=== PATIENT | male | born 1980 | race Caucasian/White ===

== ENCOUNTER 2016-06-08 14:48 | Emergency (ER) | payer OTHER, MEDICAID ==
[~2016-06-08] VITALS: Ht 170.2 cm; Wt 81.6 kg
[2016-06-08 14:50] VITALS: BP_SYST 129
[2016-06-08] MEDS ORDERED: KETOROLAC TROMETHAMINE 60 MG/2 ML VIAL IM ONE (15:30)
[2016-06-08] MEDS ORDERED: DEXAMETHASONE SOD PHOSPHATE 10 MG/ML VIAL IM ONE (15:30)
[2016-06-08 16:39] VITALS: BP_SYST 129
== END 2016-06-08 16:39 | disposition home or self-care (01) ==
LOC: SED 14:48
DX: L03.012 Cellulitis of left finger (principal); S60.461A Insect bite (nonvenomous) of left index finger, initial encounter; C62.90 Malignant neoplasm of unspecified testis, unspecified whether descended or undescended; W57.XXXA Bitten or stung by nonvenomous insect and other nonvenomous arthropods, initial encounter; Y93.89 Activity, other specified; Y99.8 Other external cause status; Y92.89 Other specified places as the place of occurrence of the external cause
CPT/HCPCS: 96372; 99284; J1100; J1885

== ENCOUNTER 2017-09-25 13:49 | Emergency (ER) | payer OTHER, MEDICAID ==
[~2017-09-25] VITALS: Ht 175.3 cm; Wt 86.2 kg
[2017-09-25 13:58] VITALS: BP_SYST 115
[2017-09-25] MEDS ORDERED: IBUPROFEN 800 MG TABLET PO ONE (14:15)
[2017-09-25] MEDS ORDERED: AMOXICILLIN/CLAVULANATE POTASSIUM 875 MG TABLET PO ONE (15:00)
[2017-09-25 15:28] VITALS: BP_SYST 117
== END 2017-09-25 15:28 | disposition home or self-care (01) ==
LOC: SED 13:49
DX: J01.90 Acute sinusitis, unspecified (principal); Z90.89 Acquired absence of other organs; Z90.49 Acquired absence of other specified parts of digestive tract; Z85.47 Personal history of malignant neoplasm of testis
CPT/HCPCS: 71045; 99283

== ENCOUNTER 2017-09-26 21:58 | Emergency (ER) | payer OTHER, MEDICAID ==
[~2017-09-26] VITALS: Ht 175.3 cm; Wt 86.2 kg
[2017-09-26 22:01] VITALS: BP_SYST 94
[2017-09-26] MEDS ORDERED: NACL 0.9% 1,000 ML IV ONE (22:34)
[2017-09-26] MEDS ORDERED: LevALBUTEROL HCL 1.25 MG/0.5 ML *CONC.* VIAL.NEB (XOPENEX CONC.) INH ONE (22:45)
[2017-09-26 23:17] LABS: BASOPHILS # (AUTO) 0.1 K/uL (0.0-0.2); BASOPHILS % (AUTO) 0.9 % (0.0-2.0); EOSINOPHILS # (AUTO) 0.2 K/uL (0.0-0.4); EOSINOPHILS % (AUTO) 2.1 % (0.0-4.0); HEMATOCRIT 44.1 % (36-54); HEMOGLOBIN 14.9 g/dL (14.0-18.0); LYMPHOCYTES # (AUTO) 2.2 K/uL (1.0-5.5); LYMPHOCYTES % (AUTO) 29.6 % (20.5-51.5); MEAN CORPUSCULAR HEMOGLOBIN 28 pg (27-31); MEAN CORPUSCULAR HGB CONC 34 % (32-36); MEAN CORPUSCULAR VOLUME 84 fL (79.0-98.0); MONOCYTES # (AUTO) 0.6 K/uL (0.0-1.0); NEUTROPHILS # (AUTO) 4.5 K/uL (1.8-7.7); NEUTROPHILS % (AUTO) 59.4 % (40.0-70.0); PLATELET COUNT (AUTO) 211 K/uL (130-430); RED BLOOD CELL COUNT(AUTO) 5.26 MIL/uL (4.2-6.2); RED CELL DISTRIBUTION WIDTH 13.6 % (9.0-15.0); WHITE BLOOD COUNT (AUTO) 7.6 K/uL (4.8-10.8)
[2017-09-26 23:33] LABS: CALCIUM 8.2 mg/dL (8.4-11.0); CREATININE 0.38 mg/dL (0.55-1.30); POTASSIUM 3.7 mmol/L (3.5-5.1)
[2017-09-26 23:39] LABS: ALBUMIN 3.3 g/dL (3.4-4.8); TOTAL BILIRUBIN 0.3 mg/dL (0.0-1.0)
[2017-09-27 00:45] VITALS: BP_SYST 104
== END 2017-09-27 00:45 | disposition home or self-care (01) ==
LOC: SED 21:58
DX: R50.9 Fever, unspecified (principal); R05 Cough; Z85.47 Personal history of malignant neoplasm of testis
CPT/HCPCS: 36415; 80053; 83605; 85025; 87040; 94150; 94640; 99284; J7030; J7612